=== PATIENT | female | born 1960 | race Caucasian/White ===

== ENCOUNTER 2020-06-27 10:24 | Emergency (ER) | payer OTHER ==
[2020-06-27 10:30] VITALS: BP 119/69
--- NOTE | 2020-06-27 12:04 | Emergency Department Report ---
Chief Complaint: Dyspnea/Respdistress Stated Complaint: REVISIT SAME SYMPTOMS Time Seen by Provider: 06/27/20 11:27 - HPI History of Present Illness: 59-year-old Spanish female presents to the emergency room seventh of breath. Patient recently diagnosed with COVID-19 and was sent home on observation and discharged yesterday. - Exam Vital Signs: Vital Signs 06/27/20 10:26 Temperature 98 F Pulse Rate 76 Respiratory 16 Rate Blood Pressure 119/69 O2 Sat by Pulse 98 Oximetry Physical Exam: Gen: alert oriented NAD nontoxic in appearance Cardic: regular rate and rhythm no murmurs appreciated Resp: Clear to auscultation bilateral no wheezing no rales or rhonchi. Abdomen: Soft nontender nondistended normal bowel sounds. Ambulatory without difficulties. MSE screening note: Focused history and physical exam performed. Due to findings the following was ordered: ED Disposition for MSE Disposition: Z MED SCREENING EXAM-LEFT Is pt being admited?: No Does the pt Need Aspirin: No Condition: Stable Instructions: Dyspnea (ED) Additional Instructions: Continue all medications as prescribed. Follow-up with your municipal engineer. Understand that your cough medication has a narcotic in it which can cause dizziness. It is important that you increase your fluid intake take all your medications as prescribed and rest. Return back to the emergency room with any worsening symptoms such as fever worsening short of breath chest pain. Referrals: OLENA CORADO MD [Staff Physician] - 3-5 Days
== END 2020-06-27 13:20 | disposition left against medical advice (07) ==
LOC: ED 10:24
DX: R06.02 Shortness of breath (principal); Z53.21 Procedure and treatment not carried out due to patient leaving prior to being seen by health care provider